=== PATIENT | male | born 1960 | race Caucasian/White ===

== ENCOUNTER 2018-04-22 19:41 | Emergency (ER) | payer OTHER ==
[~2018-04-22] VITALS: Ht 167.6 cm; Wt 66.2 kg
[~2018-04-22 19:41] MED LIST: ACET-8386 PO; LANTUS SUBQ
[2018-04-22 20:15] VITALS: BP 140/77
--- NOTE | 2018-04-22 20:20 | NUR ---
TO LOBBY A/W BED, SAMSON CALDERA NOTED
--- NOTE | 2018-04-22 21:25 | NUR ---
PT AMBULATED TO ER BED 11
--- NOTE | 2018-04-22 21:25 | NUR ---
PT PRSENTS TO ED WITH PLANTAR PAIN WITH AMBULATION, 12/31. SEEN AT BEDSIDE BY DR ESPARZA. VSS. POSITIONED IN BED FOR COMFORT. CONTINUE TO MONITOR.
[2018-04-22 21:50] VITALS: BP 140/77
--- NOTE | 2018-04-22 21:50 | NUR ---
Patient discharged with v/s stable. Written and verbal after care instructions given and explained. Patient alert, oriented and verbalized understanding of instructions. Ambulatory with steady gait. All questions addressed prior to discharge. ID band removed. Patient advised to follow up with PMD. Rx of Ibuprofen and Keflex given. Patient educated on indication of medication including possible reaction and side effects. Opportunity to ask questions provided and answered.
== END 2018-04-22 21:50 | disposition home or self-care (01) ==
LOC: MED 19:41
DX: L84 Corns and callosities (principal); E11.9 Type 2 diabetes mellitus without complications; Z79.4 Long term (current) use of insulin; Z79.899 Other long term (current) drug therapy
CPT/HCPCS: 82948; 99283

== ENCOUNTER 2022-09-21 06:47 | Day surgery (SDC) | payer OTHER ==
[~2022-09-21] VITALS: Ht 175.3 cm; Wt 54.4 kg
[~2022-09-21 06:47] MED LIST changes: -ACET-8386 PO; +ACET-8905 PO
[2022-09-21] MEDS ORDERED: fentaNYL citrate 0.05 MG/ML VIAL ONE (07:57)
[2022-09-21] MEDS ORDERED: LIDOCAINE 2% 100 MG/5 ML UJET TP ONE (07:57)
[2022-09-21] MEDS ORDERED: KETOROLAC 30 MG/ML VIAL ONE (08:16)
[2022-09-21] MEDS ORDERED: KETOROLAC 30 MG/ML VIAL IVP ONE (08:35)
== END 2022-09-21 09:10 | disposition home or self-care (01) ==
LOC: MMU 06:47 → MDS 06:47
PROVIDERS: ATTEND Internal Medicine Gastroenterology
DX: R19.4 Change in bowel habit (principal); E11.40 Type 2 diabetes mellitus with diabetic neuropathy, unspecified; M81.0 Age-related osteoporosis without current pathological fracture; Z20.822 Contact with and (suspected) exposure to COVID-19; Z79.899 Other long term (current) drug therapy
CPT/HCPCS: 45330; 87426; J1885; 45350; J3010

== ENCOUNTER 2023-10-25 17:24 | Emergency (ER) | payer OTHER ==
[~2023-10-25] VITALS: Ht 167.6 cm; Wt 53.3 kg
[2023-10-25 17:29] VITALS: BP 130/76; PULSE 104; RESP 20; TEMP 99.5; O2SAT 98
[2023-10-25] MEDS: LIDOCAINE 5% 1 EA PATCH TP ONE ×2 (18:01)
[2023-10-25 18:10] LABS: BASOPHILS % (AUTO) 0.5 % (0.0-2.0); EOSINOPHILS % (AUTO) 0.6 % (0.0-4.0); HEMATOCRIT 34.2 % (36-52); HEMOGLOBIN 11.8 g/dL (12.0-18.0); LYMPHOCYTES # (AUTO) 1.6 K/uL (2.0-11.5); LYMPHOCYTES % (AUTO) 28.8 % (20.5-51.1); MEAN CORPUSCULAR HEMOGLOBIN 30 pg (27-31); MEAN CORPUSCULAR HGB CONC 35 g/dL (33-37); MEAN CORPUSCULAR VOLUME 87.6 fL (80-94); MONOCYTES # (AUTO) 0.6 K/uL (0.8-1.0); MONOCYTES % (AUTO) 10.1 % (1.7-9.3); NEUTROPHILS # (AUTO) 3.4 K/uL (1.8-7.7); PLATELET COUNT (AUTO) 118 K/uL (140-450); RED CELL DISTRIBUTION WIDTH 13.6 % (11.6-13.7); WHITE BLOOD COUNT (AUTO) 5.6 K/uL (4.8-10.8)
[2023-10-25 18:22] LABS: CALCIUM 8.8 mg/dL (8.5-10.1); CARBON DIOXIDE 32.6 mmol/L (21-32); POTASSIUM 3.6 mmol/L (3.5-5.1)
[2023-10-25] MEDS: ACETAMINOPHEN 325 MG TAB PO ONE (18:22)
[2023-10-25 18:28] LABS: ALANINE AMINOTRANSFERASE 18 U/L (12-78); ALBUMIN 3.4 g/dL (3.4-5.0); ALKALINE PHOSPHATASE 65 U/L (50-136); ASPARTATE AMINOTRANSFERASE 22 U/L (15-37); BILIRUBIN,DIRECT 0.2 mg/dL (0.0-0.3); TOTAL BILIRUBIN 0.7 mg/dL (0.0-1.0); TOTAL PROTEIN, SERUM 7.2 g/dL (6.4-8.2)
[2023-10-25 19:53] VITALS: O2SAT 99
[2023-10-25 19:56] VITALS: BP 117/70; PULSE 88; RESP 10; O2SAT 99
== END 2023-10-25 20:40 | disposition home or self-care (01) ==
LOC: MED 17:24
DX: R07.9 Chest pain, unspecified (principal); B02.9 Zoster without complications; Z79.899 Other long term (current) drug therapy
CPT/HCPCS: 36415; 71045; 80048; 80076; 83880; 84484; 85025; 93005; 99285; Q0092